=== PATIENT | female | born 1990 | race Two or more races ===

== ENCOUNTER 2024-12-07 09:05 | Outpatient (AMB) | payer MEDICAID, SELFPAY ==
[2024-12-07 09:31] VITALS: BP 126/82; PULSE 77; RESP 16; TEMP 36.6; O2SAT 98; BMI 32.5
--- NOTE | 2024-12-07 09:31 | OBCLNT_ITS ---
Vital Signs 12/07/24 09:31 Height 1.6 m Height Method Stated Weight 83.234 kg Weight Measurement Method Standing Scale BMI 32.5 BP 126/82 Blood Pressure Source Automatic Cuff Blood Pressure Location Left Upper Arm Position Sitting Respiration 16 Pulse 77 Pulse Source Monitor Temp 97.9 F Temp Source Oral Pulse Oximetry (%) 98 Oxygen Delivery Method Room Air Allergies/Home Meds Allergies & Medications Allergies No Known Allergies Allergy (Verified 12/07/24 09:32) Medication Reconciliation No Known Home Medications 12/07/24 [History Confirmed 12/07/24] Intake Visit Data Collection New Patient or Established: Established Patient (seen at [facility] within 3 years) Reason for Visit:: INITIAL CARE Seen by Clinical Staff ONLY (RN/MA): No 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 1. Little interest or pleasure in doing things: not at all 2. Feeling down, depressed, or hopeless: not at all Total score: 0 PHQ-9 3. Trouble falling or staying asleep, or sleeping too much: Not at all 4. Feeling tired or having little energy: Not at all 5. Poor appetite or overeating: Not at all 6. Feeling bad about yourself - or that you are a failure or have let yourself or your family down: Not at all 7. Trouble concentrating on things, such as reading the newspaper or watching television: Not at all 8. Moving or speaking so slowly that other people could have noticed? - Or the opposite - being so fidgety or restless that you have been moving around a lot more than usual: not at all 9. Thoughts that you would be better off or of hurting yourself in some way: Not at all Total score: 0 Source: Developed by Drs. Juan Renner, Breanna Hernandez, Wally Guerrero and colleagues, with an educational anju from [employer]. Depression screen completed yes Social History Living Situation History Marital Status: Lives With: Family Housing: House Tobacco History Smoking Status: Never smoker Second Hand Smoke Exposure: No Alcohol History Alcohol Intake: Former Alcohol Intake Frequency: holidays/special occasions only Domestic Abuse History Do You Feel Safe at Home: Yes History of Present Illness HPI Narrative 34-year-old 4 para 3 for OB transfer from Dr. Carrero .. Patient brought records with her. This has been uneventful. She reports good movement. Denies leaking, bleeding, contractions. She has poor dates. Her last. March 23, 2024. And this put her EDC based on LMP December 28, 2024. Patient's first ultrasound was June 28, 2024. The baby was measuring 10 weeks 3 days. And corrected estimated due date to January 21, 2025. Patient then had a follow-up ultrasound October 10, 2024. She was 25 weeks 2 days at that time and this confirmed dates. Denies social habits. Denies surgery. Denies chronic illness. Patient is O+, antibody screen negative, RPR nonreactive, rubella immune, hepatitis B negative, hep C negative, HIV negative, GC and Chlamydia were both negative. Her NIPT/AFP/carrier screens all negative. Patient had a abnormal 1 hour it was 188. 3-hour GTT was normal. A1c was 6.9. Dr. Carrero was not treating patient for GDM. Denies OB problems at this time OB Initial Visit OB Flowsheet OB Flowsheet Initial Weight: Not Recorded Date -?-?-?-?-?-?-?-?-?-?-?-?- EGA Weight BP Alb Glu CTX Pres Fundal ht FHR Mov Dilation Station Effacement Hx Notes Visit Note 12/07/24 -?-?-?-?-?-?-?-?-?-?-?-?- 33w 4d 83.234 kg 126/82 absent cephalic 33 145 active 34-year-old 4 para 3 for OBI. Patient is a transfer from Dr. Nichols's with records. She has had no problems with . Her EDC January 21, 2025 and that is why 10 weeks sono reports good movement today. Denies contractions. Denies leaking. Denies bleeding Review ed labs and dates with patient today. Discussed labor precautions. I reviewed diet and asked patient to follow GDM diet. To walk 40 minutes a day. Discussed labor precautions and kick count twice a day. Return in 2 weeks OB check Menstrual History Menstrual reliability: definite Flow: normal Menstrual regularity: regular Monthly: Yes Age at menarche: 16 On control pills at conception: No Associated symptoms (LMP): Denies amenorrhea, nausea, vomiting, fatigue, breast tenderness, urinary frequency, irritability, bloating or other OB History : 4 Para: 3 # of Living Children: 3 Delivery History 1st : Child's name: JEFFERY date: 10/14/11 sex: female Gestational age at delivery (weeks): 40 Delivery type: vaginal Delivery complications: NONE History of depression before or after : No 2nd : Child's name: IZABELLA date: 06/15/16 sex: male Gestational age at delivery (weeks): 40 Delivery type: vaginal Delivery complications: NONE History of depression before or after : No 3rd : Child's name: JOSE ALFREDO date: 06/24/21 sex: female Gestational age at delivery (weeks): 40 Delivery type: vaginal Delivery complications: NONE History of depression before or after : No Infection History & Risk Evaluation History of STDs: none Genetic Screening & History Genetic Screening/Teratology Counseling - Includes patient, baby's father, or anyone in either family with: 1. Patient's age 35 years or older as of estimated date of delivery: No 2. Thalassemia (Bulgarian, Bengali, Mediterranean, or Background); MCV less than 80: No 3. Neural Tube Defect (Meningomyelocele, Spina Bifida, or Anencephaly): No 4. Congenital Heart Defect: No 5. Down Syndrome: No 6. Fernando-Sachs (Ashkenazi Oriental Orthodox, Cajun, Andorran Aurora): No 7. Serjio Disease (Ashkenazi Oriental Orthodox): No 8. Familial Dysautonomia (Ashkenazi Oriental Orthodox): No 9. Sickle Cell Disease or Trait (): No 10. Hemophilia or other blood disorders: No 11. Muscular Dystrophy: No 12. Cystic Fibrosis: No 13. Miller's Chorea: No 14. Mental Retardation/Autism: No 15. Other inherited genetic or chromosomal disorder: No 16. Maternal Metabolic Disorder (EG,TYPE 1 Diabetes, PKU): No 17. Patient or baby's father had a child with defects not listed above: No 18. Recurrent loss or a stillbirth: No 19. Medications (including supplements, vitamins, herbs or otc drugs)/illicit/recreational drugs/alcohol since last menstrual period: No 20. Any other: No Infection History 1. Live with someone with TB or exposed to TB: No 2. Rash or viral illness since last menstrual period: No 3. Hepatitis B,C: No Other (see comments) Source: [employer] Review of Systems Review of Systems Systems Reviewed: All systems reviewed, normal except as documented Constitutional Constitutional: Denies fatigue Gastrointestinal Gastrointestinal: Denies bloating, Denies nausea and Denies vomiting Genitourinary Genitourinary: Denies amenorrhea and Denies urinary frequency Psychiatric Psychiatric: Denies irritability Endocrine Endocrine: Denies fatigue Exam General Limitations: no limitations General Appearance: alert, in no apparent distress, comfortable, cooperative, healthy appearing, well developed and well groomed Head Head exam: atraumatic, normocephalic and normal inspection Resp Respiratory exam: Present normal lung sounds bilaterally Card Cardiovascular exam: Present regular rate, normal rhythm and normal heart sounds Abdominal Abdominal exam: Present soft and normal bowel sounds Psych Psychiatric exam: Present normal affect and normal mood Office Procedures OBC Clinic LOC & Office Proc's Nursing/Assessment Patient Status: Initial/New Patient OB Clinic Nursing Assessment: Medication Reconciliation, Update PMH in EMR and Vital Signs OB Clinic Coordination of Care: Complex Care and Chronic Disease 1-5, Education Complex Pt/Fam, Consent,records obtained, informed consent, Education Simp Pt/Fam, 1 Ins Authorization, Lab and Imaging orders, Results/Orders obtained and Staff clarify orders Special Needs: Heart tones New Patient Charge New Patient Point Assignment: [id number] New Patient Point Charge: ACCOUNTING OFFICE MANAGER Level 5 (1159-[id number]) Assessment & Plan Diagnosis / Problem List (1) Encounter for supervision of high risk in third trimester, antepartum: Status: Acute Plan Discussed dates. Reviewed records with patient. Discussed labor precautions and kick count twice a day. I reviewed GDM diet and advised patient to follow diet. And return in 2 weeks for OB check and GBS Additional Plan Follow Up: 2 Weeks (obc/gbs)
== END 2024-12-07 09:55 | disposition home or self-care (01) ==
LOC: HODSOBC 09:05
PROVIDERS: Supervising Provider Advanced Practice Midwife; Visit Provider Advanced Practice Midwife
DX: O09.893 Supervision of other high risk pregnancies, third trimester (principal); O24.410 Gestational diabetes mellitus in pregnancy, diet controlled; Z3A.33 33 weeks gestation of pregnancy
CPT/HCPCS: 99205; G0463

== ENCOUNTER 2024-12-16 11:43 | Outpatient (AMB) | payer MEDICAID, SELFPAY ==
[2024-12-16 11:51] VITALS: BP 116/80; PULSE 87; RESP 17; TEMP 36.5; O2SAT 98; BMI 33.0
--- NOTE | 2024-12-16 11:51 | OBCLNT_ITS ---
Vital Signs 12/16/24 11:51 Height 1.6 m Height Method Stated Weight 84.595 kg Weight Measurement Method Standing Scale BMI 33.0 BP 116/80 Blood Pressure Source Automatic Cuff Blood Pressure Location Right Upper Arm Position Sitting Respiration 17 Pulse 87 Pulse Source Monitor Temp 97.7 F Temp Source Temporal Artery Scan Pulse Oximetry (%) 98 Oxygen Delivery Method Room Air Allergies/Home Meds Allergies & Medications Allergies No Known Allergies Allergy (Verified 12/16/24 11:54) Medication Reconciliation No Known Home Medications 12/07/24 [History Confirmed 12/16/24] Intake Visit Data Collection New Patient or Established: Established Patient (seen at [facility] within 3 years) Reason for Visit:: OBC Clinical Education Assistant Required: No Do You Feel Safe at Home: Yes Authorities Contacted: N/A PCP or OBGYN visit in last 3 months: Yes Date of Last PCP or OBGYN visit: 12/07/24 Hx Now: Yes Are you currently on any form of Control: No Pain Present Currently: No Pain Scale Used: Taylor-Ovalles/Numerical Pain scale:: 0 Smoking Status Smoking Status: Never smoker Questionnaires Covid-19 Vaccine Questionnaire Has patient been vacinated for Covid-19 Have you been vacinated for Covid-19: No PHQ-9 PHQ-2 Over the last 2 weeks, how often have you been bothered by any of the following problems? 1. Little interest or pleasure in doing things: not at all 2. Feeling down, depressed, or hopeless: not at all Total score: 0 PHQ-9 3. Trouble falling or staying asleep, or sleeping too much: Not at all 4. Feeling tired or having little energy: Not at all 5. Poor appetite or overeating: Not at all 6. Feeling bad about yourself - or that you are a failure or have let yourself or your family down: Not at all 7. Trouble concentrating on things, such as reading the newspaper or watching television: Not at all 8. Moving or speaking so slowly that other people could have noticed? - Or the opposite - being so fidgety or restless that you have been moving around a lot more than usual: not at all 9. Thoughts that you would be better off or of hurting yourself in some way: Not at all Total score: 0 If you checked off any problems, how difficult have these problems made it for you to do your work, take care of things at home, or get along with other people?: not difficult at all Source: Developed by Drs. Juan Renner, Breanna Hernandez, Wally Guerrero and colleagues, with an educational anju from [employer]. Depression screen completed yes Social History Living Situation History Marital Status: Lives With: Family Housing: House Tobacco History Smoking Status: Never smoker Second Hand Smoke Exposure: No Alcohol History Alcohol Intake: Former Alcohol Intake Frequency: holidays/special occasions only Domestic Abuse History Do You Feel Safe at Home: Yes Care OB Visit Log OB Flowsheet Initial Weight: Not Recorded Date -?-?-?-?-?-?-?-?-?-?-?-?- EGA Weight BP Alb Glu CTX Pres Fundal ht FHR Mov Dilation Station Effacement Hx Notes Visit Note 12/07/24 -?-?-?-?-?-?-?-?-?-?-?-?- 33w 4d 83.234 kg 126/82 absent cephalic 33 145 active 34-year-old 4 para 3 for OBI. Patient is a transfer from Dr. Nichols's with records. She has had no problems with . Her EDC January 21, 2025 and that is why 10 weeks sono reports good movement today. Denies contractions. Denies leaking. Denies bleeding Review ed labs and dates with patient today. Discussed labor precautions. I reviewed diet and asked patient to follow GDM diet. To walk 40 minutes a day. Discussed labor precautions and kick count twice a day. Return in 2 weeks OB check 12/16/24 -?-?-?-?-?-?-?-?-?-?-?-?- 34w 6d 84.595 kg 116/80 occasional cephalic 33 145 active fetus active, no PTL complaints. denies UC,no leaking,no bleeding sono for growth at [facility], discuss PTL precaution. GBS NV. discuss FKC bid. rtc 2 week YADIRA Calculator Estimated Delivery Date Method Current WG Current Estimate 01/21/25 Ultrasound #1 34w 6d Other Estimates 12/28/24 LMP (Uncertain) 38w 2d 01/21/25 Ultrasound #2 34w 6d 01/21/25 Manual 34w 6d final YADIRA: 01/07 07/31 Notes Visit Date: 12/07/24 Last Updated by: Thea Campo CNM OB Labs: O+, ABS-, RPR::NR, RUB IMM, HBSAG-, HIV-, HC-, GC/CT-, UT-, NIPT/AFP, carrier screen-, 1 hr GTT: 188, 3hr gtt: WNL 34 yo , Poor dates: LMP: 03/23/24. 1st sono on 06/28/24: IUP 10w3. CEDC: 01/21/25. 2nd sono: 10/10/24: IUP @ 25w2. EDC: 01/21/25 Office Procedures OBC Clinic LOC & Office Proc's Nursing/Assessment Patient Status: Established Patient OB Clinic Nursing Assessment: Medication Reconciliation, Update PMH in EMR and Vital Signs OB Clinic Coordination of Care: Complex Care and Chronic Disease 1-5, Education Complex Pt/Fam, Consent,records obtained, informed consent and Staff clarify orders Special Needs: Heart tones Established Patient Charge Established Patient Point Assignment: 120 Established Patient Point Charge: EP Level 4 (120-155) Assessment & Plan Diagnosis / Problem List (1) Encounter for supervision of high risk in third trimester, antepartum: Status: Acute Additional Plan Follow Up: 2 Weeks (OBC/GBS)
== END 2024-12-16 12:21 | disposition home or self-care (01) ==
LOC: HODSOBC 11:43
PROVIDERS: Supervising Provider Advanced Practice Midwife; Visit Provider Advanced Practice Midwife
DX: O09.93 Supervision of high risk pregnancy, unspecified, third trimester (principal); Z3A.34 34 weeks gestation of pregnancy
CPT/HCPCS: 99214; G0463

== ENCOUNTER 2024-12-28 11:04 | Outpatient (AMB) | payer MEDICAID, SELFPAY ==
--- NOTE | 2024-12-28 11:58 | OBCLNT_ITS ---
Vital Signs 12/28/24 11:59 Height 1.6 m Height Method Stated Weight 85.502 kg Weight Measurement Method Standing Scale BMI 33.4 BP 105/69 Blood Pressure Source Automatic Cuff Blood Pressure Location Left Upper Arm Position Sitting Respiration 16 Pulse 95 Pulse Source Monitor Temp 97.2 F Temp Source Oral Pulse Oximetry (%) 98 Oxygen Delivery Method Room Air Allergies/Home Meds Allergies & Medications Allergies No Known Allergies Allergy (Verified 12/28/24 12:00) Medication Reconciliation No Known Home Medications 12/07/24 [History Confirmed 12/28/24] Intake Visit Data Collection New Patient or Established: Established Patient (seen at [facility] within 3 years) Reason for Visit:: OBC Seen by Clinical Staff ONLY (RN/MA): No Tray Room Worker Required: No Do You Feel Safe at Home: Yes Authorities Contacted: N/A PCP or OBGYN visit in last 3 months: Yes Date of Last PCP or OBGYN visit: 12/16/24 Hx Now: Yes Are you currently on any form of Control: No Pain Present Currently: No Pain Scale Used: Taylor-Ovalles/Numerical Pain scale:: 0 Smoking Status Smoking Status: Never smoker Immunizations Flu Vaccine in the Last 12 Months: No Flu Vaccine Exclusion Criteria: No Exclusion Criteria Questionnaires Covid-19 Vaccine Questionnaire Has patient been vacinated for Covid-19 Have you been vacinated for Covid-19: Yes PHQ-9 PHQ-2 Over the last 2 weeks, how often have you been bothered by any of the following problems? 1. Little interest or pleasure in doing things: not at all 2. Feeling down, depressed, or hopeless: not at all Total score: 0 PHQ-9 3. Trouble falling or staying asleep, or sleeping too much: Not at all 4. Feeling tired or having little energy: Not at all 5. Poor appetite or overeating: Not at all 6. Feeling bad about yourself - or that you are a failure or have let yourself or your family down: Not at all 7. Trouble concentrating on things, such as reading the newspaper or watching television: Not at all 8. Moving or speaking so slowly that other people could have noticed? - Or the opposite - being so fidgety or restless that you have been moving around a lot more than usual: not at all 9. Thoughts that you would be better off or of hurting yourself in some way: Not at all Total score: 0 If you checked off any problems, how difficult have these problems made it for you to do your work, take care of things at home, or get along with other people?: not difficult at all Source: Developed by Drs. Juan Renner, Breanna Hernandez, Wally Guerrero and colleagues, with an educational anju from [employer]. Depression screen completed yes Social History Living Situation History Lives With: Family Housing: House Tobacco History Smoking Status: Never smoker Second Hand Smoke Exposure: No Alcohol History Alcohol Intake: Former Alcohol Intake Frequency: holidays/special occasions only Domestic Abuse History Do You Feel Safe at Home: Yes Care OB Visit Log OB Flowsheet Initial Weight: Not Recorded Date -?-?-?-?-?-?-?-?-?-?-?-?- EGA Weight BP Alb Glu CTX Pres Fundal ht FHR Mov Dilation Station Effacement Hx Notes Visit Note 12/07/24 -?-?-?-?-?-?-?-?-?-?-?-?- 33w 4d 83.234 kg 126/82 absent cephalic 33 145 active 34-year-old 4 para 3 for OBI. Patient is a transfer from Dr. Nichols's with records. She has had no problems with . Her EDC January 21, 2025 and that is why 10 weeks sono reports good movement today. Denies contractions. Denies leaking. Denies bleeding Review ed labs and dates with patient today. Discussed labor precautions. I reviewed diet and asked patient to follow GDM diet. To walk 40 minutes a day. Discussed labor precautions and kick count twice a day. Return in 2 weeks OB check 12/16/24 -?-?-?-?-?-?-?-?-?-?-?-?- 34w 6d 84.595 kg 116/80 occasional cephalic 33 145 active fetus active, no PTL complaints. denies UC,no leaking,no bleeding sono for growth at [facility], discuss PTL precaution. GBS NV. discuss FKC bid. rtc 2 week 12/28/24 -?-?-?-?-?-?-?-?-?-?-?-?- 36w 4d 85.502 kg 105/69 occasional cephalic 35 140 active Reports increased pressure and contractions. Denies leaking or bleeding. Patient reports good movement. No other OB complaints GBS today. Discussed kick count. Discussed labor precautions and parameters. Discussed ER precautions. Continue prenatals. Return in a week OB check YADIRA Calculator Estimated Delivery Date Method Current WG Current Estimate 01/21/25 Ultrasound #1 36w 4d Other Estimates 12/28/24 LMP (Uncertain) 40w 0d 01/21/25 Ultrasound #2 36w 4d 01/21/25 Manual 36w 4d final YADIRA: 01/07 07/31 Notes Visit Date: 12/07/24 Last Updated by: Thea Campo CNM OB Labs: O+, ABS-, RPR::NR, RUB IMM, HBSAG-, HIV-, HC-, GC/CT-, UT-, NIPT/AFP, carrier screen-, 1 hr GTT: 188, 3hr gtt: WNL 34 yo , Poor dates: LMP: 03/23/24. 1st sono on 06/28/24: IUP 10w3. CEDC: 01/21/25. 2nd sono: 10/10/24: IUP @ 25w2. EDC: 01/21/25 Office Procedures OBC Clinic LOC & Office Proc's Nursing/Assessment Patient Status: Established Patient OB Clinic Nursing Assessment: Medication Reconciliation, Update PMH in EMR and Vital Signs OB Clinic Coordination of Care: Consent,records obtained, informed consent, Education Simp Pt/Fam, Lab and Imaging orders, Results/Orders obtained and Staff clarify orders Special Needs: Heart tones Established Patient Charge Established Patient Point Assignment: 110 Established Patient Point Charge: EP Level 3 (80-115) Assessment & Plan Diagnosis / Problem List (1) Encounter for supervision of high risk in third trimester, antepartum: Status: Acute Plan Discussed labor precautions and parameters. Kick count twice a day. Continue prenatals. Increase fluids. 10-week OB check Additional Plan Follow Up: 1 Week (obc)
[2024-12-28 11:59] VITALS: BP 105/69; PULSE 95; RESP 16; TEMP 36.2; O2SAT 98; BMI 33.4
== END 2024-12-28 13:09 | disposition home or self-care (01) ==
LOC: HODSOBC 11:04
PROVIDERS: Supervising Provider Advanced Practice Midwife; Visit Provider Advanced Practice Midwife
DX: O09.93 Supervision of high risk pregnancy, unspecified, third trimester (principal); Z3A.36 36 weeks gestation of pregnancy; Z36.85 Encounter for antenatal screening for Streptococcus B
CPT/HCPCS: 99213; G0463

== ENCOUNTER 2025-01-04 10:49 | Outpatient (AMB) | payer MEDICAID, SELFPAY ==
--- NOTE | 2025-01-04 10:54 | OBCLNT_ITS ---
Vital Signs 01/04/25 11:05 Height 1.6 m Height Method Stated Weight 87.09 kg Weight Measurement Method Standing Scale BMI 34.0 BP 128/86 H Blood Pressure Source Automatic Cuff Blood Pressure Location Left Upper Arm Position Sitting Respiration 19 Pulse 20 L Pulse Source Monitor Temp 97.8 F Temp Source Oral Pulse Oximetry (%) 98 Oxygen Delivery Method Room Air Allergies/Home Meds Allergies & Medications Allergies No Known Allergies Allergy (Verified 01/04/25 11:06) Medication Reconciliation clotrimazole 1 % vaginal cream (Gyne-Lotrimin 7) 1 appful vaginal QHS #45 grams 01/04/25 [Rx] fluconazole 150 mg tablet 150 mg PO QDAY 3 days #3 tabs 01/04/25 [Rx] metronidazole 500 mg tablet 500 mg PO BID 7 days #14 tabs 01/04/25 [Rx] Intake Visit Data Collection New Patient or Established: Established Patient (seen at [facility] within 3 years) Reason for Visit:: CARE Seen by Clinical Staff ONLY (RN/MA): No Rehab/Pre Vocational Counselor Required: No Do You Feel Safe at Home: Yes Authorities Contacted: N/A PCP or OBGYN visit in last 3 months: Yes Hx Now: Yes Are you currently on any form of Control: No Pain Present Currently: No Pain Scale Used: Taylor-Ovalles/Numerical Pain scale:: 0 Smoking Status Smoking Status: Never smoker Immunizations Flu Vaccine in the Last 12 Months: Yes Flu Vaccine Exclusion Criteria: Already Received Questionnaires Covid-19 Vaccine Questionnaire Has patient been vacinated for Covid-19 Have you been vacinated for Covid-19: Yes PHQ-9 PHQ-2 Over the last 2 weeks, how often have you been bothered by any of the following problems? 1. Little interest or pleasure in doing things: not at all 2. Feeling down, depressed, or hopeless: not at all Total score: 0 PHQ-9 3. Trouble falling or staying asleep, or sleeping too much: Not at all 4. Feeling tired or having little energy: Not at all 5. Poor appetite or overeating: Not at all 6. Feeling bad about yourself - or that you are a failure or have let yourself or your family down: Not at all 7. Trouble concentrating on things, such as reading the newspaper or watching television: Not at all 8. Moving or speaking so slowly that other people could have noticed? - Or the opposite - being so fidgety or restless that you have been moving around a lot more than usual: not at all 9. Thoughts that you would be better off or of hurting yourself in some way: Not at all Total score: 0 Source: Developed by Drs. Juan Renner, Breanna Hernandez, Wally Guerrero and colleagues, with an educational anju from [employer]. Depression screen completed yes Social History Living Situation History Lives With: Family Housing: House Tobacco History Smoking Status: Never smoker Second Hand Smoke Exposure: No Alcohol History Alcohol Intake: Former Alcohol Intake Frequency: holidays/special occasions only Domestic Abuse History Do You Feel Safe at Home: Yes Care OB Visit Log OB Flowsheet Initial Weight: Not Recorded Date -?-?-?-?-?-?-?-?-?-?-?-?- EGA Weight BP Alb Glu CTX Pres Fundal ht FHR Mov Dilation Station Ef facement Hx Notes Visit Note 12/07/24 -?-?-?-?-?-?-?-?-?-?-?-?- 33w 4d 83.234 kg 126/82 absent cephalic 33 145 active 34-year-old 4 para 3 for OBI. Patient is a transfer from Dr. Nichols's with records. She has had no problems with . Her EDC January 21, 2025 and that is why 10 weeks sono reports good movement today. Denies contractions. Denies leaking. Denies bleeding Review ed labs and dates with patient today. Discussed labor precautions. I reviewed diet and asked patient to follow GDM diet. To walk 40 minutes a day. Discussed labor precautions and kick count twice a day. Return in 2 weeks OB check 12/16/24 -?-?-?-?-?-?-?-?-?-?-?-?- 34w 6d 84.595 kg 116/80 occasional cephalic 33 145 active fetus active, no PTL complaints. denies UC,no leaking,no bleeding sono for growth at [facility], discuss PTL precaution. GBS NV. discuss FKC bid. rtc 2 week 12/28/24 -?-?-?-?-?-?-?-?-?-?-?-?- 36w 4d 85.502 kg 105/69 occasional cephalic 35 140 active Reports increased pressure and contractions. Denies leaking or bleeding. Patient reports good movement. No other OB complaints GBS today. Discussed kick count. Discussed labor precautions and parameters. Discussed ER precautions. Continue prenatals. Return in a week OB check 01/04/25 -?-?-?-?-?-?-?-?-?-?-?-?- 37w 4d 87.09 kg 128/86 occasional cephalic 37 156 active Reports good movement. Denies leaking or bleeding. Fetus active per patient. Complains of increased vaginal discharge, itching, burning NuSwab today. Diflucan 150 p.o. daily x 3. Flagyl 500 p.o. twice daily x 7. Gyne-Lotrimin to put in the introitus for burning. Discussed labor precautions. Kick count twice a day. Continue to watch carbs in the walk 40 minutes a day. Return in a week OB check YADIRA Calculator Estimated Delivery Date Method Current WG Current Estimate 01/21/25 Ultrasound #1 37w 4d Other Estimates 12/28/24 LMP (Uncertain) 41w 0d 01/21/25 Ultrasound #2 37w 4d 01/21/25 Manual 37w 4d final YADIRA: 01/07 07/31 Notes Visit Date: 12/07/24 Last Updated by: Thea Campo CNM OB Labs: O+, ABS-, RPR::NR, RUB IMM, HBSAG-, HIV-, HC-, GC/CT-, UT-, NIPT/AFP, carrier screen-, 1 hr GTT: 188, 3hr gtt: WNL 34 yo , Poor dates: LMP: 03/23/24. 1st sono on 06/28/24: IUP 10w3. CEDC: 01/21/25. 2nd sono: 10/10/24: IUP @ 25w2. EDC: 01/21/25 Office Procedures OBC Clinic LOC & Office Proc's Nursing/Assessment Patient Status: Established Patient OB Clinic Nursing Assessment: Medication Reconciliation, Update PMH in EMR and Vital Signs OB Clinic Coordination of Care: Complex Care and Chronic Disease 1-5, Consent,records obtained, informed consent, Education Simp Pt/Fam, 1 Ins Authorization, Lab and Imaging orders, Results/Orders obtained and Staff clarify orders Special Needs: Heart tones Miscellaneous Interventions: Culture Specimen Collection Established Patient Charge Established Patient Point Assignment: 165 Established Patient Point Charge: EP Level 5 (160-above) Assessment & Plan Diagnosis / Problem List (1) Encounter for supervision of high risk in third trimester, antepartum: Status: Acute (2) Vaginitis: Status: Acute Qualifiers: Chronicity: acute Qualified Code(s): N76.0 - Acute vaginitis Plan NuSwab plus for vaginitis. Diflucan 150 p.o. daily x 3. Flagyl 500 p.o. twice daily x 7. Increase fluids. Reviewed kick count. Additional Plan Follow Up: 1 Week (OBC)
[2025-01-04 11:05] VITALS: BP 128/86; PULSE 20; RESP 19; TEMP 36.6; O2SAT 98; BMI 34.0
== END 2025-01-04 11:28 | disposition home or self-care (01) ==
LOC: HODSOBC 10:49
PROVIDERS: PCP Advanced Practice Midwife; Referring Provider Advanced Practice Midwife; Supervising Provider Advanced Practice Midwife; Visit Provider Advanced Practice Midwife
DX: O09.893 Supervision of other high risk pregnancies, third trimester (principal); O23.593 Infection of other part of genital tract in pregnancy, third trimester; N76.0 Acute vaginitis; Z3A.37 37 weeks gestation of pregnancy
CPT/HCPCS: 99214; 99215; G0463

== ENCOUNTER 2025-01-13 09:06 | Outpatient (AMB) | payer MEDICAID, SELFPAY ==
[2025-01-13 09:17] VITALS: BP 119/82; PULSE 80; RESP 18; TEMP 36.3; O2SAT 98; BMI 33.3
--- NOTE | 2025-01-13 09:17 | OBCLNT_ITS ---
Vital Signs 01/13/25 09:17 Height 1.6 m Height Method Stated Weight 85.389 kg Weight Measurement Method Standing Scale BMI 33.3 BP 119/82 Blood Pressure Source Automatic Cuff Blood Pressure Location Left Upper Arm Position Sitting Respiration 18 Pulse 80 Pulse Source Monitor Temp 97.3 F Temp Source Temporal Artery Scan Pulse Oximetry (%) 98 Oxygen Delivery Method Room Air Allergies/Home Meds Allergies & Medications Allergies No Known Allergies Allergy (Verified 01/13/25 09:18) Medication Reconciliation clotrimazole 1 % vaginal cream (Gyne-Lotrimin 7) 1 appful vaginal QHS #45 grams 01/04/25 [Rx Confirmed 01/13/25] Intake Visit Data Collection New Patient or Established: Established Patient (seen at [facility] within 3 years) Reason for Visit:: OBC Seen by Clinical Staff ONLY (RN/MA): No Programming Specialist Required: No Do You Feel Safe at Home: Yes Authorities Contacted: N/A PCP or OBGYN visit in last 3 months: Yes Date of Last PCP or OBGYN visit: 01/04/25 Hx Now: Yes Are you currently on any form of Control: No Pain Present Currently: No Pain Scale Used: Taylor-Ovalles/Numerical Pain scale:: 0 Smoking Status Smoking Status: Never smoker Immunizations Flu Vaccine in the Last 12 Months: No Flu Vaccine Exclusion Criteria: No Exclusion Criteria Questionnaires Covid-19 Vaccine Questionnaire Has patient been vacinated for Covid-19 Have you been vacinated for Covid-19: No PHQ-9 PHQ-2 Over the last 2 weeks, how often have you been bothered by any of the following problems? 1. Little interest or pleasure in doing things: not at all 2. Feeling down, depressed, or hopeless: not at all Total score: 0 PHQ-9 3. Trouble falling or staying asleep, or sleeping too much: Not at all 4. Feeling tired or having little energy: Not at all 5. Poor appetite or overeating: Not at all 6. Feeling bad about yourself - or that you are a failure or have let yourself or your family down: Not at all 7. Trouble concentrating on things, such as reading the newspaper or watching television: Not at all 8. Moving or speaking so slowly that other people could have noticed? - Or the opposite - being so fidgety or restless that you have been moving around a lot more than usual: not at all 9. Thoughts that you would be better off or of hurting yourself in some way: Not at all Total score: 0 If you checked off any problems, how difficult have these problems made it for you to do your work, take care of things at home, or get along with other people?: not difficult at all Source: Developed by Drs. Juan Renner, Breanna Hernandez, Wally Guerrero and colleagues, with an educational anju from [employer]. Depression screen completed yes Social History Living Situation History Marital Status: Lives With: Family Housing: House Tobacco History Smoking Status: Never smoker Second Hand Smoke Exposure: No Alcohol History Alcohol Intake: Former Alcohol Intake Frequency: holidays/special occasions only Domestic Abuse History Do You Feel Safe at Home: Yes Care OB Visit Log OB Flowsheet Initial Weight: Not Recorded Date -?-?-?-?-?-?-?-?--?-?-?-?- EGA Weight BP Alb Glu CTX Pres Fundal ht FHR Mov Dilation Station Effacement Hx Notes Visit Note 12/07/24 -?-?-?-?-?-?-?-?-?-?-?-?- 33w 4d 83.234 kg 126/82 absent cephalic 33 145 active 34-year-old 4 para 3 for OBI. Patient is a transfer from Dr. Nichols'fermin with records. She has had no problems with . Her EDC January 21, 2025 and that is why 10 weeks sono reports good movement today. Denies contractions. Denies leaking. Denies bleeding Review ed labs and dates with patient today. Discussed labor precautions. I reviewed diet and asked patient to follow GDM diet. To walk 40 minutes a day. Discussed labor precautions and kick count twice a day. Return in 2 weeks OB check 12/16/24 -?-?-?-?-?-?-?-?-?-?-?-?- 34w 6d 84.595 kg 116/80 occasional cephalic 33 145 active fetus active, no PTL complaints. denies UC,no leaking,no bleeding sono for growth at [facility], discuss PTL precaution. GBS NV. discuss FKC bid. rtc 2 week 12/28/24 -?-?-?-?-?-?-?-?-?-?-?-?- 36w 4d 85.502 kg 105/69 occasional cephalic 35 140 active Reports increased pressure and contractions. Denies leaking or bleeding. Patient reports good movement. No other OB complaints GBS today. Discussed kick count. Discussed labor precautions and parameters. Discussed ER precautions. Continue prenatals. Return in a week OB check 01/04/25 -?-?-?-?-?-?-?-?-?-?-?-?- 37w 4d 87.09 kg 128/86 occasional cephalic 37 156 active Reports good movement. Denies leaking or bleeding. Fetus active per patient. Complains of increased vaginal discharge, itching, burning NuSwab today. Diflucan 150 p.o. daily x 3. Flagyl 500 p.o. twice daily x 7. Gyne-Lotrimin to put in the introitus for burning. Discussed labor precautions. Kick count twice a day. Continue to watch carbs in the walk 40 minutes a day. Return in a week OB check 01/13/25 -?-?-?-?-?-?-?-?-?-?-?-?- 38w 6d 85.389 kg 119/82 occasional cephalic 37 156 active 1 -2 60 Patient wants a Tdap vaccine today. Reports good movement. Increased contractions. Denies leaking or bleeding Tdap vaccine today. Discussed kick count labor precautions. I discussed with patient getting the flu shot. Return a week OB check. Discussed labor precautions YADIRA Calculator Estimated Delivery Date Method Current WG Current Estimate 01/21/25 Ultrasound #1 38w 6d Other Estimates 12/28/24 LMP (Uncertain) 42w 2d 01/21/25 Ultrasound #2 38w 6d 01/21/25 Manual 38w 6d final YADIRA: 01/07 07/31 Notes Visit Date: 01/13/25 Last Updated by: Thea Campo CNM GBS-,, nuswab:+yeast/BV/treated last visit Visit Date: 12/07/24 Last Updated by: Thea Campo CNM OB Labs: O+, ABS-, RPR::NR, RUB IMM, HBSAG-, HIV-, HC-, GC/CT-, UT-, NIPT/AFP, carrier screen-, 1 hr GTT: 188, 3hr gtt: WNL 34 yo , Poor dates: LMP: 03/23/24. 1st sono on 06/28/24: IUP 10w3. CEDC: 01/21/25. 2nd sono: 10/10/24: IUP @ 25w2. EDC: 01/21/25 Office Procedures OBC Clinic LOC & Office Proc's Nursing/Assessment Patient Status: Established Patient OB Clinic Nursing Assessment: Medication Reconciliation, Update PMH in EMR and Vital Signs OB Clinic Coordination of Care: Complex Care and Chronic Disease 1-5, Education Complex Pt/Fam, Consent,records obtained, informed consent, Lab and Imaging orders, Results/Orders obtained and Staff clarify orders Special Needs: Heart tones Established Patient Charge Established Patient Point Assignment: 140 Established Patient Point Charge: EP Level 4 (120-155) Injection/Vaccine Admin SQ Im Injection: Yes Immunizations diphth,pertus(acell),tetanus 2.5 Lf unit-8 mcg-5 Lf/0.5mL IM syringe Performing Provider: Thea Campo CNM Performing Location: [facility] CLINICAL DOCUMENTATION CLERK Clinic Administered by: Mary Jo Cleveland MA on 01/13/25 09:50 Dose Route Admin Location Dispensed Lot Number Expiration Date Pack age [facility] [employer] Effects Manager 0.5 mL IM Left Deltoid 0.5 mL [id number] 08/19/27 92922-232-31 [id number] [employer] VIS Given Date VIS Provided VIS Publication Date 01/13/25 Single Vaccine 24 Eligibility Eligibility Date Funding Source Public [facility] Assessment & Plan Diagnosis / Problem List (1) Encounter for supervision of high risk in third trimester, antepartum: Status: Acute Plan Tdap today. Discussed kick count labor precautions. Okay for patient to get the flu shot vaccine from the pharmacy. Discussed danger signs symptoms return with OB check Additional Plan Follow Up: 1 Week (obc)
== END 2025-01-13 09:49 | disposition home or self-care (01) ==
LOC: HODSOBC 09:06
PROVIDERS: Supervising Provider Advanced Practice Midwife; Visit Provider Advanced Practice Midwife
DX: O09.93 Supervision of high risk pregnancy, unspecified, third trimester (principal); Z3A.38 38 weeks gestation of pregnancy; Z23 Encounter for immunization
CPT/HCPCS: 90471; 90715; 96372; 99214; G0463

== ENCOUNTER 2025-01-16 13:52 | Outpatient (AMB) | payer MEDICAID, SELFPAY ==
--- NOTE | 2025-01-16 14:07 | AMB.OBVISIT ---
Vital Signs 01/16/25 14:08 Height 1.6 m Height Method Stated Weight 86.296 kg Weight Measurement Method Standing Scale BMI 33.7 BP 150/88 H Blood Pressure Source Automatic Cuff Blood Pressure Location Left Upper Arm Position Standing Respiration 18 Pulse 88 Pulse Source Monitor Temp 97.2 F Temp Source Oral Pulse Oximetry (%) 98 Oxygen Delivery Method Room Air Allergies/Home Meds Allergies & Medications Allergies No Known Allergies Allergy (Verified 01/16/25 15:27) Medication Reconciliation clotrimazole 1 % vaginal cream (Gyne-Lotrimin 7) 1 appful vaginal QHS #45 grams 01/04/25 [Rx Confirmed 01/16/25] Intake Visit Data Collection New Patient or Established: Established Patient (seen at [facility] within 3 years) Reason for Visit:: OBC Seen by Clinical Staff ONLY (RN/MA): No Hydro Excavation Operator Required: No Do You Feel Safe at Home: Yes Authorities Contacted: N/A PCP or OBGYN visit in last 3 months: Yes Date of Last PCP or OBGYN visit: 01/13/25 Hx Now: Yes Are you currently on any form of Control: No Pain Present Currently: No Pain Scale Used: Taylor-Ovalles/Numerical Pain scale:: 0 Smoking Status Smoking Status: Never smoker Immunizations Flu Vaccine in the Last 12 Months: No Flu Vaccine Exclusion Criteria: No Exclusion Criteria Questionnaires Covid-19 Vaccine Questionnaire Has patient been vacinated for Covid-19 Have you been vacinated for Covid-19: Yes PHQ-9 PHQ-2 Over the last 2 weeks, how often have you been bothered by any of the following problems? 1. Little interest or pleasure in doing things: not at all 2. Feeling down, depressed, or hopeless: not at all Total score: 0 PHQ-9 3. Trouble falling or staying asleep, or sleeping too much: Not at all 4. Feeling tired or having little energy: Not at all 5. Poor appetite or overeating: Not at all 6. Feeling bad about yourself - or that you are a failure or have let yourself or your family down: Not at all 7. Trouble concentrating on things, such as reading the newspaper or watching television: Not at all 8. Moving or speaking so slowly that other people could have noticed? - Or the opposite - being so fidgety or restless that you have been moving around a lot more than usual: not at all 9. Thoughts that you would be better off or of hurting yourself in some way: Not at all Total score: 0 If you checked off any problems, how difficult have these problems made it for you to do your work, take care of things at home, or get along with other people?: not difficult at all Source: Developed by Drs. Juan Renner, Breanna Hernandez, Wally Guerrero and colleagues, with an educational anju from [employer]. Depression screen completed yes Social History Living Situation History Lives With: Family Housing: House Tobacco History Smoking Status: Never smoker Second Hand Smoke Exposure: No Alcohol History Alcohol Intake: Former Alcohol Intake Frequency: holidays/special occasions only Domestic Abuse History Do You Feel Safe at Home: Yes Care OB Visit Log OB Flowsheet Initial Weight: Not Recorded Date <del>?</del> EGA Weight BP Alb Glu CTX Pres Fundal ht FHR Mov Dilation Station Effacement Hx Notes Visit Note 12/07/24 <del>?</del> 33w 4d 83.234 kg 126/82 absent cephalic 33 145 active 34-year-old 4 para 3 for OBI. Patient is a transfer from Dr. Nichols's with records. She has had no problems with . Her EDC January 21, 2025 and that is why 10 weeks sono reports good movement today. Denies contractions. Denies leaking. Denies bleeding Reviewed labs and dates with patient today. Discussed labor precautions. I reviewed diet and asked patient to follow GDM diet. To walk 40 minutes a day. Discussed labor precautions and kick count twice a day. Return in 2 weeks OB check 12/16/24 <del>?</del> 34w 6d 84.595 kg 116/80 occasional cephalic 33 145 active fetus active, no PTL complaints. denies UC,no leaking,no bleeding sono for growth at [facility], discuss PTL precaution. GBS NV. discuss FKC bid. rtc 2 week 12/28/24 <del>?</del> 36w 4d 85.502 kg 105/69 occasional cephalic 35 140 active Reports increased pressure and contractions. Denies leaking or bleeding. Patient reports good movement. No other OB complaints GBS today. Discussed kick count. Discussed labor precautions and parameters. Discussed ER precautions. Continue prenatals. Return in a week OB check 01/04/25 <del>?</del> 37w 4d 87.09 kg 128/86 occasional cephalic 37 156 active Reports good movement. Denies leaking or bleeding. Fetus active per patient. Complains of increased vaginal discharge, itching, burning NuSwab today. Diflucan 150 p.o. daily x 3. Flagyl 500 p.o. twice daily x 7. Gyne-Lotrimin to put in the introitus for burning. Discussed labor precautions. Kick count twice a day. Continue to watch carbs in the walk 40 minutes a day. Return in a week OB check 01/13/25 <del>?</del> 38w 6d 85.389 kg 119/82 occasional cephalic 37 156 active 1 -2 60 Patient wants a Tdap vaccine today. Reports good movement. Increased contractions. Denies leaking or bleeding Tdap vaccine today. Discussed kick count labor precautions. I discussed with patient getting the flu shot. Return a week OB check. Discussed labor precautions 01/16/25 <del>?</del> 39w 2d 86.296 kg 150/88 occasional cephalic 38 156 active Patient has been complaining of a headache for 24 hours. Reports movement. Denies leaking, bleeding. Occasional contractions Discussed signs symptoms of labor. And kick count twice a day. Patient was sent to labor and delivery to rule out PIH and labor. YADIRA Calculator Estimated Delivery Date Method Current WG Current Estimate 01/21/25 Ultrasound #1 39w 2d Other Estimates 12/28/24 LMP (Uncertain) 42w 5d 01/21/25 Ultrasound #2 39w 2d 01/21/25 Manual 39w 2d final YADIRA: 01/21/25 Notes Visit Date: 01/13/25 Last Updated by: Thea Campo CNM GBS-,, nuswab:+yeast/BV/treated last visit Visit Date: 12/07/24 Last Updated by: Thea Campo CNM OB Labs: O+, ABS-, RPR::NR, RUB IMM, HBSAG-, HIV-, HC-, GC/CT-, UT-, NIPT/AFP, carrier screen-, 1 hr GTT: 188, 3hr gtt: WNL 34 yo , Poor dates: LMP: 03/23/24. 1st sono on 06/28/24: IUP 10w3. CEDC: 01/21/25. 2nd sono: 10/10/24: IUP @ 25w2. EDC: 01/21/25 Office Procedures OBC Clinic LOC & Office Proc's Nursing/Assessment Patient Status: Established Patient OB Clinic Nursing Assessment: Medication Reconciliation, Update PMH in EMR and Vital Signs OB Clinic Coordination of Care: Consent,records obtained, informed consent, Education Simp Pt/Fam, Lab and Imaging orders, Results/Orders obtained and Staff clarify orders Special Needs: Heart tones Miscellaneous Interventions: Blood/Urine Collection Established Patient Charge Established Patient Point Assignment: 140 Established Patient Point Charge: EP Level 4 (120-155) Assessment & Plan Diagnosis / Problem List (1) Encounter for supervision of high risk in third trimester, antepartum: Status: Acute Plan Discussed PIH complaints and precautions. Patient was sent to labor and delivery to rule out PIH and to monitor blood pressures. Return in a week if she is not sent home undelivered Additional Plan Follow Up: 1 Week (obc)
[2025-01-16 14:08] VITALS: BP 150/88; PULSE 88; RESP 18; TEMP 36.2; O2SAT 98; BMI 33.7
== END 2025-01-16 14:36 | disposition home or self-care (01) ==
LOC: HODSOBC 13:52
PROVIDERS: Supervising Provider Advanced Practice Midwife; Visit Provider Advanced Practice Midwife
DX: O09.893 Supervision of other high risk pregnancies, third trimester (principal); O99.891 Other specified diseases and conditions complicating pregnancy; R51.9 Headache, unspecified; Z3A.39 39 weeks gestation of pregnancy
CPT/HCPCS: 99214; G0463

== ENCOUNTER 2025-01-16 15:07 | Observation (INO) | payer MEDICAID, SELFPAY ==
[2025-01-16] VITALS (24 sets, daily range): BP systolic 121–138; BP diastolic 69–84; PULSE 78–103; RESP 18–99; TEMP 36.7; O2SAT 98–100; BMI 32.7
[2025-01-16 15:54] LABS: Collection Type, Urine Clean Catch; Squamous Epithelial Cell,Urine 0 /hpf (0-5)
[2025-01-16 16:03] LABS: Basophils # (Auto) 0.0 Thou/mm3 (0.0-0.2); Basophils % (Auto) 0 % (0-2.5); Eosinophils # (Auto) 0.0 Thou/mm3 (0.0-0.5); Eosinophils % (Auto) 0 % (0-10); Hematocrit 35.8 % (36.0-46.0); Hemoglobin 12.3 g/dL (12.0-16.0); Immature Granulocytes Auto 0.06 Thou/mm3 (0.00-0.00); Lymphocytes # (Auto) 1.8 Thou/mm3 (1.0-4.8); Lymphocytes % (Auto) 18 % (10-50); Mean Corpuscular HGB Conc 34.4 g/dl (31.0-37.0); Mean Corpuscular Hemoglobin 29.4 pg (25.0-35.0); Mean Corpuscular Volume 86 fL (80-100); Monocytes # (Auto) 0.6 Thou/mm3 (0.0-0.8); Monocytes % (Auto) 6 % (0-12); Neutrophils # (Auto) 7.3 Thou/mm3 (1.8-7.7); Neutrophils % (Auto) 75 % (37-80); Nucleated Red Blood Cell # 0.00 Thou/mm3 (0.00-0.00); Nucleated Red Blood Cell % 0 /100 WBC (0); Platelet Count 200 Thou/mm3 (140-440); RDW Standard Deviation 43.9 fL (36.4-46.3); Red Blood Count 4.18 Miln/mm3 (4.00-5.20); White Blood Count 9.7 Thou/mm3 (3.6-11.0)
[2025-01-16 16:26] LABS: Alanine Aminotransferase 15 U/L (10-49); Albumin, Serum 4.3 gm/dL (3.5-5.0); Albumin/Globulin Ratio 2.5 (1.2-2.2); Alkaline Phosphatase 104 U/L (46-116); Anion Gap 11 (7-16); Aspartate Amino Transferase 24 U/L (0-34); BUN/Creatinine Ratio 17 Ratio (12-20); Bilirubin,Total 0.4 mg/dL (0.3-1.2); Blood Urea Nitrogen 10 mg/dL (9-23); Calcium 9.2 mg/dL (8.3-10.6); Calcium (Corrected) 9.2 mg/dL (8.5-10.1); Carbon Dioxide 21.6 mMol/L (20.0-31.0); Chloride 106 mMol/L (98-107); Creatinine (Component) 0.6 mg/dL (0.6-1.3); Estimated Creatinine Clearance 143.2 mL/min (>60); Globulin 1.7 gm/dL (2.3-3.5); Glucose 80 mg/dL (74-106); LDH (Lactate Dehydrogenase) 172 U/L (120-246); Osmolality,Calculated 275 (275-295); Potassium 3.8 mMol/L (3.4-5.1); Sodium 139 mMol/L (136-145); Total Protein 6.0 gm/dL (5.7-8.2); Uric Acid 3.1 mg/dL (3.1-7.8); eGFR > 60 See Note
[2025-01-16 16:30] LABS: Bilirubin,Urine Negative (Negative); Blood,Urine Negative (Negative); Clarity,Urine Clear (Clear/Hazy); Color,Urine Colorless (Lt Yel-Yel); Glucose, Urine Negative (Negative); Ketones,Urine Negative (Negative); Leukocyte Esterase,Urine Negative (Negative); Nitrite,Urine Negative (Negative); PH,Urine 6.5 (5.0-7.0); Protein,Urine Negative (Neg - Trace); RBC,Urine < 1 /hpf (0-3); Specific Gravity,Urine 1.005 (1.001-1.035); Urobilinogen,Urine Negative mg/dL (0.0-1.0); WBC,Urine < 1 /hpf (0-5)
[2025-01-16 16:43] LABS: Fibrinogen 253 mg/dL (175-375); INR 1.1 (0.9-1.3); Partial Thromboplastin Time 29.3 Seconds (22.0-36.0); Prothrombin Time 11.4 Seconds (9.0-12.2)
[2025-01-16 16:47] LABS: Creatinine,Random Urine 16 mg/dL (30-125); Protein Total, Random Urine < 6 mg/dL (1-14)
[2025-01-16] MEDS: ACETAMINOPHEN 325 MG TABLET 650 MG PO (16:53)
[2025-01-16] MEDS: RINGERS LACTATED 1000 ML 1,000 ML 999 ML IV (17:11)
--- NOTE | 2025-01-20 11:21 | PC.NURSE ---
LATE ENTRY: PT HAD CALLED EARLIER ASKING FOR BED FOR IOL, INFORMED OF NO BED AVAILABLE AT THIS TIME, EDUCATED ON KICK COUNT AND LABOR PRECAUTIONS, WILL ONCE BED BECOMES AVAILABLE, PT VERBALIZED UNDERSTANDING
--- NOTE | 2025-01-20 11:22 | PC.NURSE ---
CALLED PT TWICE, NO ANSWER, LEFT VOICEMAIL
== END 2025-01-16 18:22 | disposition home or self-care (01) ==
PROVIDERS: Admitting Provider Advanced Practice Midwife; Visit Provider Advanced Practice Midwife
DX: Z34.83 Encounter for supervision of other normal pregnancy, third trimester (principal); Z3A.39 39 weeks gestation of pregnancy
CPT/HCPCS: 36415; 59025; 59899; 80053; 81001; 82570; 83615; 84156; 84550; 85025; 85384; 85610; 85730; J7120; A9270

== ENCOUNTER 2025-01-20 13:01 | Inpatient (IN) | payer MEDICAID, SELFPAY ==
[2025-01-20 13:33] VITALS: BMI 30.7
[2025-01-20 13:43] VITALS: BP 128/77; PULSE 95
[2025-01-20 14:00] VITALS: RESP 18; TEMP 36.4
[2025-01-20 17:06] LABS: Basophils # (Auto) 0.0 Thou/mm3 (0.0-0.2); Basophils % (Auto) 0 % (0-2.5); Eosinophils # (Auto) 0.1 Thou/mm3 (0.0-0.5); Eosinophils % (Auto) 1 % (0-10); Hematocrit 36.9 % (36.0-46.0); Hemoglobin 12.8 g/dL (12.0-16.0); Immature Granulocytes Auto 0.05 Thou/mm3 (0.00-0.00); Lymphocytes # (Auto) 1.5 Thou/mm3 (1.0-4.8); Lymphocytes % (Auto) 18 % (10-50); Mean Corpuscular HGB Conc 34.7 g/dl (31.0-37.0); Mean Corpuscular Hemoglobin 30.2 pg (25.0-35.0); Mean Corpuscular Volume 87 fL (80-100); Monocytes # (Auto) 0.6 Thou/mm3 (0.0-0.8); Monocytes % (Auto) 7 % (0-12); Neutrophils # (Auto) 6.3 Thou/mm3 (1.8-7.7); Neutrophils % (Auto) 74 % (37-80); Nucleated Red Blood Cell # 0.00 Thou/mm3 (0.00-0.00); Nucleated Red Blood Cell % 0 /100 WBC (0); Platelet Count 214 Thou/mm3 (140-440); RDW Standard Deviation 45.2 fL (36.4-46.3); Red Blood Count 4.24 Miln/mm3 (4.00-5.20); White Blood Count 8.5 Thou/mm3 (3.6-11.0)
[2025-01-20 17:33] LABS: Syphilis Nonreactive (Nonreactive)
[2025-01-20 19:07] VITALS: RESP 16; TEMP 36.6
[2025-01-20 19:15] VITALS: BP 129/83; PULSE 87
--- NOTE | 2025-01-20 20:41 | ESHP_ITS ---
Documentation for date of: 01/20/25 OB Labor/Induct. HPI History of Present Illness Chief complaint: Induction of labor : 4 Para: 3 Term pregnancies: 3 Living children: 3 History of Vaginal deliveries: 3 History of sections: No History of : No YADIRA: 01/21/25 Gestational Age (weeks): 39 Gestational Age (days): 6 History of present illness: 34-year-old 4 para 3 at 39 weeks and 6 days presents for induction of labor. Patient receives care with [facility] with the CNM. She started care with Dr. Carrero at [facility] and transferred care in the third trimester On presentation patient denies any contractions or leakage of fluid or vaginal bleeding and reports adequate movements. Review of her records show that patient had a significant elevation in her blood pressure to 150/88 which is an increase over her baseline from the 1 teens over 70s and 60s at her 39-week visit for which she was scheduled for induction due to new onset gestational hypertension. On presentation patient denies any headache or visual symptoms or epigastric or right upper quadrant pain. Labs Labs: Positive: Rubella Titre, Negative: RPR, Hepatitis B, HIV, Chlamydia, Gonorrhea and Group Beta Strep and Unknown: Herpes Type 1, Herpes Type 2 and Covid-19 Past Medical History Surgical History SURGICAL: Negative Section Meds Home Medications and Allergies Home Medications ?Medication ?Instructions ?Recorded ?Confirmed ?Type vit no.95-ferrous 1 tab PO QDAY 01/20/2501/07 History fumarate 28 mg-folic acid 800 mcg tablet () Allergies Allergy/AdvReac Type Severity Reaction Status Date / Time No Known Allergies Allergy Verified 01/20/25 13:59 OB Exam Physical Exam Vital signs: Temp Pulse Resp BP 97.9 F 87 16 129/83 01/20/25 19:07 01/20/25 19:15 01/20/25 19:07 01/20/25 19:15 Constitutional Constitutional: no acute distress Routine HEENT Exam Head: Present normocephalic and atraumatic Eye: Present EOMI and PERRL ENT: Present mucous membranes moist Routine Neck Exam Neck: Present supple and trachea midline Routine Cardiovascular Exam Cardiovascular: Present RRR Routine Abdominal Exam Abdominal: Present soft and normoactive bowel sounds Detailed Labor and Delivery Exam Dilation (cm): 1 Cervix position: posterior station: -4 Consistency: firm Presentation: Vertex Baseline heart rate: 140 monitor accelerations: 15x15 monitor decelerations: None residential variability: Average (6-10) Routine Extremities Exam Extremities: Present full ROM Routine Skin Exam Skin: Present intact, dry and warm Routine Neurological Exam Neurological: Present alert, oriented X3 and CN II-XII intact Routine Psychiatric Exam Psychiatric: Present normal affect and normal thought process OB Results Labs 01/20/25 15:40 Labs: Short CBC 01/20/25 Range/Units 15:40 WBC 8.5 (3.6-11.0) Thou/mm3 Hgb 12.8 (12.0-16.0) g/dL Hct 36.9 (36.0-46.0) % Plt Count 214 (140-440) Thou/mm3 OB Assessment & Plan Assessment and Plan (1) Gestational hypertension: Status: Acute (2) Encounter for induction of labor: Status: Acute Assessment and plan: Admit to inpatient for induction of labor. Start cervical ripening with dinoprostone, will proceed to oxytocin augmentation once Jaramillo score is favorable IV access, LR at 125 cc/h, labs to include CBC type and screen and RPR patient had a preeclampsia panel done 3 days ago that was reviewed and was all within normal limits Pain management as per protocol, epidural whenever desired Continuous maternal monitoring Anticipate vaginal delivery
[2025-01-20 22:49] VITALS: RESP 17; TEMP 36.6
[2025-01-20 22:50] VITALS: BP 120/78; PULSE 82
[2025-01-21] VITALS (94 sets, daily range): BP systolic 99–141; BP diastolic 54–91; PULSE 71–122; RESP 15–18; TEMP 36.7–37.1; O2SAT 97–100
[2025-01-21] MEDS: RINGERS LACTATED 1000 ML 1,000 ML 999 ML IV ×3 (07:50→12:09)
[2025-01-21] MEDS: OXYTOCIN in NS 30 units 30 UNIT/500 ML BAG IV (11:21)
[2025-01-21] MEDS: METHYLERGONOVINE INJ 0.2 MG/ML VIAL IM (12:53)
--- NOTE | 2025-01-21 13:02 | PD.LDDELS ---
Data (Doherty) Data Hx Section: No : 4 Term: 3 Livin Delivery Data (Doherty) Labor Data ROM date: 01/21/25 ROM time: 10:42 Amniotic membrane rupture type: Artificial Amniotic fluid description: Clear Delivery Data Delivered by: Thea Campo Delivery Method Presentation: Vertex
[2025-01-21] MEDS: OXYTOCIN in NS 20 units 20 UNIT/1,000 ML BAG 125 UNIT IV (13:28)
[2025-01-21] MEDS: IBUPROFEN TAB 400 MG TABLET 800 MG PO (14:22)
[2025-01-21] MEDS: HYDROcodone/APAP 5/325 TABLET 1 TAB PO (19:28)
[2025-01-22] MEDS: IBUPROFEN TAB 400 MG TABLET 800 MG PO (01:32)
[2025-01-22] MEDS: HYDROcodone/APAP 5/325 TABLET 1 TAB PO (03:46)
[2025-01-22 04:00] VITALS: BP 118/73; PULSE 80; RESP 17; TEMP 36.7; O2SAT 97
[2025-01-22 05:40] LABS: Basophils # (Auto) 0.0 Thou/mm3 (0.0-0.2); Basophils % (Auto) 0 % (0-2.5); Eosinophils # (Auto) 0.1 Thou/mm3 (0.0-0.5); Eosinophils % (Auto) 1 % (0-10); Hematocrit 29.8 % (36.0-46.0); Hemoglobin 10.2 g/dL (12.0-16.0); Immature Granulocytes Auto 0.05 Thou/mm3 (0.00-0.00); Lymphocytes # (Auto) 1.5 Thou/mm3 (1.0-4.8); Lymphocytes % (Auto) 14 % (10-50); Mean Corpuscular HGB Conc 34.2 g/dl (31.0-37.0); Mean Corpuscular Hemoglobin 29.9 pg (25.0-35.0); Mean Corpuscular Volume 87 fL (80-100); Monocytes # (Auto) 0.7 Thou/mm3 (0.0-0.8); Monocytes % (Auto) 6 % (0-12); Neutrophils # (Auto) 8.3 Thou/mm3 (1.8-7.7); Neutrophils % (Auto) 78 % (37-80); Nucleated Red Blood Cell # 0.00 Thou/mm3 (0.00-0.00); Nucleated Red Blood Cell % 0 /100 WBC (0); Platelet Count 176 Thou/mm3 (140-440); RDW Standard Deviation 44.2 fL (36.4-46.3); Red Blood Count 3.41 Miln/mm3 (4.00-5.20); White Blood Count 10.6 Thou/mm3 (3.6-11.0)
--- NOTE | 2025-01-22 05:40 | PD.LDDELS ---
Data (Doherty) Data Hx Section: No : 4 Term: 3 Livin Delivery Data (Doherty) Labor Data Initiation of labor: Induction Induction/Augmentation Agent: Cytotec-PO, Cervidil and Pitocin ROM date: 01/21/25 ROM time: 10:42 Amniotic membrane rupture type: Artificial Amniotic fluid description: Clear Delivery Data Onset of labor date: 01/21/25 Onset of labor time: 07:00 Complete dilation date: 01/21/25 Complete dilation time: 12:45 delivery date: 01/21/25 delivery time: 12:48 Placenta delivery date: 01/21/25 Placenta delivery time: 12:52 Stage 1 total time: Labor - Stage 1 Duration 5 hours and 45 minutes Delivered by: Thea Campo Delivery nurse: samia Kwong nurse: josé manuel Supervisor Type Photography at delivery: No Support person(s) at delivery: FOB Other staff at delivery: Enrike Matute, service crew leadergamma facilities operator Method Delivery method: Normal Vaginal Delivery Presentation: Vertex Anesthesia Type Anesthesia Type: Epidural Placenta Placenta delivery description: Manual Removal Cord blood sent to lab: Yes cord blood collection: Cord Blood Type Episiotomy Episiotomy description: None Umbilical Cord cord description: 3 Vessels [place] Data (Doherty) Data order: 1 's gender: Female Identification band number: [id number] weight (gms): 3145 g Weight (pounds): 6 lbs and 14.9 ozs [place] length: 49.5 cm 1 minute: 9 5 minutes: 9
--- NOTE | 2025-01-22 05:40 | PD.LDPPPRG ---
Subjective Subjective Interval history: Delivery type: Patient doing well this morning. No acute complaints. Ambulating, tolerating p.o., and voiding without difficulty. HTN/Pre-E screen negative: No CP, SOB, FRANCOIS, visual changes, RUQ pain. : Yes Lochia: diminishing Bowel: Flatus + / BM + UOP: Adequate Exam Vital Signs Temp Pulse Resp BP Pulse Ox O2 Del Method 98.1 F 80 17 118/73 97 Room Air 01/22/25 04:00 01/22/25 04:00 01/22/25 04:00 01/22/25 04:00 01/22/25 04:00 01/22/25 04:00 Constitutional Constitutional: no acute distress Routine HEENT Exam Head: Present normocephalic and atraumatic Eye: Present EOMI and PERRL ENT: Present mucous membranes moist Routine Neck Exam Neck: Present supple and trachea midline Routine Respiratory Exam Respiratory: Present chest non-tender, lungs clear, normal breath sounds and no resp distress Routine Cardiovascular Exam Cardiovascular: Present RRR Routine Abdominal Exam Abdominal: Present soft and normoactive bowel sounds Routine Extremities Exam Extremities: Present full ROM Routine Skin Exam Skin: Present intact, dry and warm Routine Neurological Exam Neurological: Present alert, oriented X3 and CN II-XII intact Routine Psychiatric Exam Psychiatric: Present normal affect and normal thought process Objective Labs 01/20/25 15:40 Assessment & Plan Problem List (1) Gestational hypertension: Status: Acute (2) Encounter for induction of labor: Status: Acute (3) Vaginal delivery: Status: Acute Assessment and plan: 1. Continue routine /post-op care 2. Labs reviewed, cbc appropriate 3. Remove dressing/Juarez 4. Encourage to ambulate, shower 5. Encourage PO intake, breast feeding Time Spent With Patient Time: Total time spent is greater than 50% in coordination of care (as documented) at patient's floor/unit and/or counseling patient:
--- NOTE | 2025-01-22 05:41 | ESDS_ITS ---
DS: Providers Provider Date of admission: 01/20/25 13:01 Primary care physician: Physician No Primary/Family Admitting Provider: Skinny Wnog MD Attending Provider on Admission: Skinny Wong MD Consults: 01/21/25 14:11 Referral Routine Comment: Attending Provider on DC: Skinny Wong MD Discharging Provider: Skinny Wong MD DS: Diagnosis Discharge Diagnosis (1) Vaginal delivery: Status: Acute (2) Encounter for induction of labor: Status: Acute Problem List Completed Was Problem List Reviewed/Reconciled?: Yes Summary/Hosp Course Brief History: 34-year-old 4 para 3 at 39 weeks and 6 days presents for induction of labor. Patient receives care with [facility] with the CNM. She started care with Dr. Carrero at [facility] and transferred care in the third trimester On presentation patient denies any contractions or leakage of fluid or vaginal bleeding and reports adequate movements. Review of her records show that patient had a significant elevation in her blood pressure to 150/88 which is an increase over her baseline from the 1 teens over 70s and 60s at her 39-week visit for which she was scheduled for induction due to new onset gestational hypertension. On presentation patient denies any headache or visual symptoms or epigastric or right upper quadrant pain. Peripartum Data Delivery Method: Normal Vaginal Delivery Episiotomy Description: None Time Spent with Patient Time attestation: Total time spent providing and/or coordinating discharge services: Exam Vital Signs Temp Pulse Resp BP Pulse Ox O2 Del Method 98.1 F 80 17 118/73 97 Room Air 01/22/25 04:00 01/22/25 04:00 01/22/25 04:00 01/22/25 04:00 01/22/25 04:00 01/22/25 04:00 Discharge Plan Plan Patient Disposition: HOME (Self Care) Patient condition on transfer: Stable Prescriptions/Referrals Prescriptions/Med Rec: New docusate sodium [Stool Softener] 100 mg capsule 100 mg PO QDAY 30 Days Qty: 30 0RF ibuprofen 600 mg tablet 600 mg PO Q6H MDD 4 PRN (Reason: fever or pain) 10 Days Qty: 40 0RF Continued PNV no.95-ferrous fumarate-FA [] 28 mg iron- 800 mcg tablet 1 tab PO QDAY Patient Comments: take 1 tablet by mouth once daily Discontinued clotrimazole [Gyne-Lotrimin 7] 1 % cream 1 appful vaginal QHS Qty: 45 0RF Referrals: Skinny Wong MD [Physician, [employer] DEVELOPER] No Primary/Family,Physician [Primary Care Provider] Patient/Caregiver Discharge Instructions Education Materials: After a Vaginal , After Delivery [place] Concerns, Breast Care After , Incision Care After Vaginal , Nutrition While , Understanding Depression, : Caring for Yourself, Feel Healthy After Print Language: Danish Stand Alone Forms: [email or web address] Info., Patient Portal Info Letter Discharge Order Discharge Orders: Discharge (Routine); Ordered 01/22/25 Ordered By: Skinny Wong Planned Discharge Date 01/22/25
[2025-01-22 08:30] VITALS: BP 105/69; PULSE 80; RESP 17; TEMP 36.9; O2SAT 97
[2025-01-22] MEDS: ACETAMINOPHEN 325 MG TABLET 650 MG PO (08:50)
[2025-01-22] MEDS: DOCUSATE SOD 100 MG CAPSULE PO (08:50)
[2025-01-22 12:30] VITALS: BP 114/75; PULSE 90; RESP 16; TEMP 36.9
== END 2025-01-22 15:35 | disposition home or self-care (01) | DRG 560 ==
LOC: S4SX 01-21 14:02 → S4NX 01-21 15:19
PROVIDERS: Admitting Provider Obstetrics & Gynecology; Visit Provider Obstetrics & Gynecology
DX: O13.4 Gestational [pregnancy-induced] hypertension without significant proteinuria, complicating childbirth (principal); Z3A.39 39 weeks gestation of pregnancy; Z37.0 Single live birth; Z23 Encounter for immunization
CPT/HCPCS: 36415; 85025; 86780; 86850; 86900; 86901; 90686; J2210; J2590; J2795; J7120; S0191; A9270; J9060